=== PATIENT | female | born 1965 | race Caucasian/White ===

== ENCOUNTER 2017-04-24 09:46 | Emergency (ER) | payer BC ==
[~2017-04-24] VITALS: Ht 165.1 cm; Wt 76.2 kg
[~2017-04-24 09:46] MED LIST: CEFD300C3 PO; Lisinopril PO; MECL-106 PO; NAPR220T76 PO
--- OUTSIDE RECORDS SUMMARY | 2017-04-24 09:52 | XMS REPORT | Continuity of Care Document ---
Demographics Preferred Language Unknown Marital Status Unknown Yarsanism Affiliation Unknown Race Unknown Ethnic Group Unknown Author Author [facility] Address Unknown Phone Unavailable Allergies Active Description Code Type Severity Reaction Onset Reported/Identified Relationship to Patient Clinical Status Yes NKA NKA Mild N/A 05/07/2014 Yes No Known Drug Allergies [id number] Drug Allergy Unknown N/A 05/07/2014 Medications There is no data. Problems Date Dx Coded Attending Type Code Diagnosis Diagnosed By 05/06/2010 309.28 AD ADJ D/O W ANX DEP MOOD 05/09/2014 WILFREDO CLARKE, ROSE Eubanks Ot 346.20 05/09/2014 WILFREDO CLARKE, ROSE Eubanks Ot 786.9 05/09/2014 WILFREDO CLARKE, ROSE Eubanks Ot V04.81 Procedures There is no data. Results There is no data. Encounters ACCT No. Visit Date/Time Discharge Status Pt. Type Provider Facility Loc./Unit Complaint [id number] 05/06/2010 11:35:00 05/06/2010 23:59:59 CLS Outpatient [id number] 04/15/2012 20:24:27 RECURRING [id number] 05/07/2014 16:00:00 05/09/2014 16:53:00 DIS Inpatient WILFREDO CLARKE, ROSE Eubanks [address] [id number] 09/13/2012 15:52:00 09/27/2012 15:41:00 DIS Outpatient [id number] 08/30/2012 13:09:00 08/30/2012 23:59:59 CLS Outpatient [id number] 07/31/2012 14:09:00 07/31/2012 23:59:59 CLS Outpatient [id number] 07/31/2012 09:05:00 07/31/2012 23:59:59 CLS Outpatient
[2017-04-24] MEDS ORDERED: TETANUS,DIPTH,PERTUSS P/F (BOOSTRIX) 0.5 ML VIAL IM ONE (10:15)
--- NOTE | 2017-04-24 10:40 | ED Upper Extremity ---
General Chief Complaint: Laceration Stated Complaint: LEFT THUMB LACERATION ON GLASS Source: patient Exam Limitations: no limitations History of Present Illness Date Seen by Provider: Apr 24, 2017 Time Seen by Provider: 10:36 Initial Comments To ER with laceration to the dorsal aspect left thumb while washing a glass drinkwear. Tetanus not up-to-date. Onset: just prior to arrival Severity: moderate Pain/Injury Location: left thumb Allergies and Home Medications Allergies Coded Allergies: No Known Drug Allergies (Unverified , 05/07/14) Home Medications No Active Prescriptions or Reported Meds Constitutional: see HPI EENTM: see HPI Respiratory: no symptoms reported Cardiovascular: no symptoms reported Genitourinary: no symptoms reported Musculoskeletal: no symptoms reported Skin: no symptoms reported Psychiatric/Neurological: No Symptoms Reported Past Nxxphen-Uptbjz-Dmamrk Hx Patient Social History Alcohol Use: Denies Use Recreational Drug Use: No Smoking Status: Never a Smoker Recent Foreign Travel: No Contact w/Someone Who Travel: No Immunizations Up To Date Tetanus Booster (TDap): More than 5yrs Date of Pneumonia Vaccine: Feb 01, 2012 Surgeries History of Surgeries: No Respiratory History of Respiratory Disorde: No Cardiovascular History of Cardiac Disorders: Yes (NEW DIAGNOSES) Neurological History of Neurological Disord: Yes Reproductive System Hx Reproductive Disorders: No Sexually Transmitted Disease: No HIV/AIDS: No Female Reproductive Disorders: Denies Genitourinary Genitourinary Disorders: UTI-Chronic Gastrointestinal Gastrointestinal Disorders: Gastroesophageal Reflux Musculoskeletal History of Musculoskeletal Dis: Yes Musculoskeletal Disorders: Arthritis Endocrine History of Endocrine Disorders: No HEENT Loss of Vision: Denies Hearing Impairment: Denies Cancer History of Cancer: No Psychosocial History of Psychiatric Problem: Yes Integumentary History of Skin or Integumenta: Yes (GETS HIVES) Blood Transfusions History of Blood Disorders: No Adverse Reaction to a Blood Tr: No Family Medical History Family Medial History: Arthritis 19 MOTHER Asthma SON1 Cataracts 19 MOTHER Coronary thrombosis 19 FATHER Diabetes mellitus 19 FATHER 19 MOTHER Fibrocystic disease of breast GRANDMOTHER Hypercholesterolemia 19 FATHER 19 MOTHER G8 BROTHER G8 SISTER G8 SISTER Hypertension 19 FATHER Myocardial infarction 19 FATHER GRANDMOTHER Neoplasm GRANDMOTHER Thyroid disease G8 SISTER No Family History of: AIDS Abdominal aortic aneurysm Mellette's disease Alcoholism Alzheimer's disease Aphasia Cancer of mouth Cardiovascular disease Colon cancer Completed stroke Congenital disease Congenital heart disease Cystic fibrosis Deafness or hearing loss Dementia Drug abuse Dysphasia Gastroenteritis Glaucoma Headache disorder Infertility Kidney disease Not obtainable due to adoption Osteoporosis Parkinson's disease Prostate cancer Psychosocial problem Respiratory disorder Seizure disorder Severe allergy Tuberculosis Visual disorder Physical Exam Vital Signs Capillary Refill : General Appearance: WD/WN, no apparent distress HEENT: PERRL/EOMI, normal ENT inspection Neck: non-tender, full range of motion Respiratory: no respiratory distress, no accessory muscle use Gastrointestinal: normal bowel sounds, non tender, soft Shoulder: normal inspection, non-tender Elbow/Forearm: normal inspection, non-tender, Left Hand: Left, laceration (1.5 cm laceration over the IP joint dorsally left thumb this does not extend to the extensor tendons only to the subcutaneous tissues. She is able to flex and extend the thumb fully) Neurologic/Psychiatric: alert, normal mood/affect, oriented x 3 Skin: normal color, warm/dry Laceration Repair : Wound Location: Upper Extremities Wound Length (cm): 1.5 Wound's Depth, Shape: sub Q Wound Explored: clean Irrigated w/ Saline (ccs): 250 Anesthesia: 1% Lidocaine Volume Anesthetic (ccs): 2 Suture: Ethlion Suture Size: 4-0 Number of Sutures: 6 Layer Closure?: 1 Number Deep Layer Sutures: 0 Progress Area anesthetized with 2 mL of 1% lidocaine without epinephrine. Wound then scrubbed with chlorhexidine/saline solution then irrigated with plain saline. Closed with 6 simple interrupted sutures size 4-0 Ethilon Departure Impression Impression: Primary Impression: Thumb laceration Disposition: 01 HOME, SELF-CARE Condition: Improved Departure-Patient Inst. Decision time for Depature: 10:39 Referrals: ROSE VILLALOBOS MD (PCP) Primary Care Physician Patient Instructions: Laceration Repair With Stitches (DC) Add. Discharge Instructions: 1. You may remove this bulky dressing tomorrow. Do not soak this hand in water such as a dish sink or hot tub or bathtub until the stitches have been removed. However, starting tomorrow you may allow this to get wet in the shower allowing water to run over it. Remove this dressing tomorrow and replace it with a simple Band-Aid. Wear the thumb splint to keep from bending her thumb for the next 5 days. Return to the emergency room in 7-10 days at your convenience to have the stitches removed. All discharge instructions reviewed with patient and/ or family. Voiced understanding. Scripts No Active Prescriptions or Reported Meds GERDA WILDE APRN Apr 24, 2017 10:40
[2017-04-24 10:55] VITALS: BP 167/99
== END 2017-04-24 10:53 | disposition home or self-care (01) ==
LOC: EDUNIT# 09:46 → ER 09:48
DX: S61.012A Laceration without foreign body of left thumb without damage to nail, initial encounter (principal); K21.9 Gastro-esophageal reflux disease without esophagitis; Z23 Encounter for immunization; Z86.79 Personal history of other diseases of the circulatory system; Z82.49 Family history of ischemic heart disease and other diseases of the circulatory system; W18.02XA Striking against glass with subsequent fall, initial encounter
CPT/HCPCS: 12011; 90471; 90715

== ENCOUNTER 2017-05-07 09:16 | Emergency (ER) | payer BC ==
[~2017-05-07] VITALS: Ht 162.6 cm; Wt 68.0 kg
[2017-05-07 09:36] VITALS: BP 146/94
== END 2017-05-07 09:31 | disposition home or self-care (01) ==
LOC: EDUNIT# 09:16 → ER 09:17
DX: S61.012D Laceration without foreign body of left thumb without damage to nail, subsequent encounter (principal); X58.XXXD Exposure to other specified factors, subsequent encounter

== ENCOUNTER → 2017-05-28 | Outpatient (CLI) | payer BC ==
--- NOTE | 2017-05-28 16:03 | Diagnostic Imaging Report ---
INDICATION: Nausea. Dizziness. Blurred vision x1 month. TECHNIQUE: Routine non contrast-enhanced axial images were obtained from the skull base to the vertex. COMPARISON: 05/07/2014. FINDINGS: The ventricles and cortical sulci are normal in size and contour. There is no midline shift or mass-effect. No acute intra-axial hemorrhage is seen. There are no abnormal areas of increased or decreased density to suggest acute hemorrhage or edema. No extra-axial masses or collections are present. The bony calvarium is intact. The visualized paranasal sinuses are unremarkable. The mastoid air cells are clear. IMPRESSION: 1. No acute intracranial abnormality. No CT evidence of mass, acute infarct or intracranial hemorrhage. Dictated by: Dictated on workstation # [id number]
== END ==
LOC: RAD 15:28
PROVIDERS: ATTEND Family Medicine
DX: H53.8 Other visual disturbances (principal); R51 Headache; R11.0 Nausea; R42 Dizziness and giddiness
CPT/HCPCS: 70450

== ENCOUNTER → 2021-01-07 | Outpatient (CLI) | payer SELFPAY ==
[~2021-01-07] MED LIST changes: +CATHETER FLUSH 10 ML SYR IV PRN; +HOLD METFORMIN - RECEIVED CONTRAST 20 ML VIAL IV SCH; +IOHEXOL 350 MG/ML 100 ML (OMNIPAQUE 350) VIAL IV ONE; +NS 100 ML (IVPB) BAG IV ONE
--- NOTE | 2021-01-07 14:52 | Diagnostic Imaging Report ---
PROCEDURE: CT angiography of the chest with contrast. TECHNIQUE: Multiple contiguous axial images were obtained through the chest after uneventful bolus administration of intravenous contrast. 3D reconstructed CTA MIP acquisitions were also performed. Auto Exposure Controls were utilized during the CT exam to meet ALARA standards for radiation dose reduction. DATE: January 07, 2021. COMPARISON: Chest radiograph May 07, 20192014. INDICATION: 55-year-old female, elevated d-dimer. Shortness of breath on exertion. FINDINGS: There is no identified pulmonary nodule or lung mass. There is no focal airspace consolidation. There is no pneumothorax. There is no pleural effusion. The central airways are patent. There is no identified pulmonary embolus. The heart is not enlarged. There is no pericardial effusion. There is no identified mediastinal, hilar, or axillary lymph node meeting CT size criteria for adenopathy. There is note of 2 left-sided renal arteries. There is no identified acute bony abnormality. There are degenerative changes of the lower cervical spine. IMPRESSION: CT CHEST. 1. No identified pulmonary embolus or other acute cardiopulmonary abnormality. Dictated by: Dictated on workstation # [id number]
== END ==
LOC: RAD 13:45
PROVIDERS: ATTEND Pediatrics
DX: R79.89 Other specified abnormal findings of blood chemistry (principal); R06.09 Other forms of dyspnea
CPT/HCPCS: 71275

== ENCOUNTER → 2021-12-20 | Outpatient (CLI) | payer BC, OTHER ==
[~2021-12-20] MED LIST changes: -CATHETER FLUSH 10 ML SYR IV PRN; -HOLD METFORMIN - RECEIVED CONTRAST 20 ML VIAL IV SCH; -IOHEXOL 350 MG/ML 100 ML (OMNIPAQUE 350) VIAL IV ONE; -NS 100 ML (IVPB) BAG IV ONE
== END ==
LOC: CARD 13:00
PROVIDERS: ATTEND Internal Medicine Cardiovascular Disease
DX: R06.09 Other forms of dyspnea (principal); R00.2 Palpitations
CPT/HCPCS: 93225; 93226; 93306

== ENCOUNTER → 2021-12-30 | Outpatient (CLI) | payer BC, OTHER ==
[~2021-12-30] VITALS: Ht 165 cm; Wt 84.0 kg
[~2021-12-30] MED LIST changes: +CATHETER FLUSH 10 ML SYR IVP PRN; +REGADENOSON 0.4 MG/5 ML SYR (LEXISCAN) IV ONE
[2021-12-30 08:58] VITALS: BP 151/94
--- NOTE | 2021-12-30 12:30 | STRESS TEST ---
DATE OF SERVICE: 12/30/2021 RESTING AND POST REGADENOSON TECHNETIUM-99M TETROFOSMIN SPECT CT IMAGING ORDERING PHYSICIAN: Dr. Hicks. CLINICAL DIAGNOSIS: Shortness of breath. Baseline images were carried out after injection of 10.69 mCi of technetium-99m Tetrofosmin. This was followed by 0.4 mg regadenoson and 30.6 mCi of technetium-99m Tetrofosmin for stress imaging. The electrocardiogram showed sinus rhythm at baseline. A ventricular couplet was seen during the study. No ventricular or supraventricular tachycardia was seen. The patient noted headache and shortness of breath and nausea following regadenoson infusion, which resolved in a few minutes. Review of images at rest and following stress does not indicate any significant perfusion defects consistent with myocardial ischemia or infarction. Gated images show normal global left ventricular systolic function with normal regional wall motion. Left ventricular ejection fraction is calculated to be 65%. CONCLUSIONS: 1. No evidence of any significant myocardial ischemia or infarction study. 2. Normal regional wall motion. 3. Normal global left ventricular systolic function with a calculated ejection fraction of 65%. Job ID: [id number] DocumentID: [id number] Dictated Date: 12/30/2021 12:07:04 Patient Support Specialist Date: 12/30/2021 12:29:15 Dictated By: MARTINA HIKCS MD, MA, FACP, FACC, MTDD
== END ==
LOC: CARD 08:00
PROVIDERS: ATTEND Internal Medicine Cardiovascular Disease
DX: R06.09 Other forms of dyspnea (principal); R00.2 Palpitations; R06.02 Shortness of breath
CPT/HCPCS: 78452; 93017; A9502

== ENCOUNTER 2022-05-15 15:55 | Outpatient (CLI) | payer BC ==
[~2022-05-15 15:55] MED LIST changes: -CATHETER FLUSH 10 ML SYR IVP PRN; -REGADENOSON 0.4 MG/5 ML SYR (LEXISCAN) IV ONE
== END 2022-05-15 16:25 ==
LOC: SLEEP 15:55
PROVIDERS: ATTEND Otolaryngology Otolaryngology/Facial Plastic Surgery
DX: G47.33 Obstructive sleep apnea (adult) (pediatric) (principal); G47.36 Sleep related hypoventilation in conditions classified elsewhere; R06.83 Snoring
CPT/HCPCS: G0399

== ENCOUNTER 2022-08-15 10:00 | Day surgery (SDC) | payer BC ==
[~2022-08-15] VITALS: Ht 165.1 cm; Wt 67.5 kg
[2022-08-15] VITALS (8 sets, daily range): BP systolic 103–127; BP diastolic 65–80
[2022-08-15 08:15] LABS: HEMATOCRIT 36 % (35-52); HEMOGLOBIN 11.9 g/dL (11.5-16.0); MEAN CORPUSCULAR HEMOGLOBIN 30 pg (25-34); MEAN CORPUSCULAR HGB CONC 33 g/dL (32-36); MEAN CORPUSCULAR VOLUME 91 fL (80-99); MEAN PLATELET VOLUME 8.8 fL (9.0-12.2); PLATELET COUNT 356 10^3/uL (130-400); WHITE BLOOD COUNT 5.9 10^3/uL (4.3-11.0)
[2022-08-15 08:25] LABS: PROTHROMBIN TIME PATIENT 13.3 SEC (12.2-14.7)
[2022-08-15 08:36] LABS: ALBUMIN 4.5 GM/DL (3.2-4.5); BILIRUBIN,TOTAL 0.6 MG/DL (0.1-1.0); CALCIUM 10.3 MG/DL (8.5-10.1); CREATININE SERUM 0.93 MG/DL (0.60-1.30); POTASSIUM 3.7 MMOL/L (3.6-5.0)
[~2022-08-15 10:00] MED LIST changes: +ACET325T38 PO; +ALPR0.254 PO; +ASPI-1238 PO; +ATOR80TA76 PO; +FENO135C4 PO; +HEParin (CATH LAB) 2,000 ML IV ONE; +HEParin 1000 UNIT/ML (10ML VIAL) FOR BOLUS ONE; +LIDOCAINE 1% INJ 20 ML VIAL ONE; +MAGN400T39 PO; +METF-479 PO; +MIDAZOLAM 5 MG/5 ML (VERSED) VIAL ONE; +MTP25TSR PO; +NITRO DRIP 25000 MCG/D5W 250 ML IV ONE; +NS IV 1000 ML 1,000 ML IV SCH; +NS IV 1000 ML 1,000 ML ONE; +TIRZ5PEN SQ; +VERAPAMIL 5 MG/2 ML (CALAN) VIAL IV ONE; +fentaNYL INJ 100 MCG/2 ML AMP ONE
[2022-08-15] MEDS ORDERED: diphenhydrAMINE 50 MG/ML INJ (BENADRYL) ONE (10:15)
--- NOTE | 2022-08-15 10:45 | Cardiac Procedure Note-CS/ASA ---
Pre-Procedure Note Pre-Op Procedure Note Date of Available H&P: August 19, 2022 Date H&P Reviewed: August 15, 2022 Time H&P Reviewed: 09:45 History & Physical: H&P Reviewed, No changes noted Moderate Sedation PreProcedure ASA Score 3 Airway Lungs Heart ASA score ASA 1: a normal healthy patient ASA 2: a patient with a mild systemic disease (mid diabetes, controlled hypertension, obesity ASA 3: a patient with a severe systemic disease that limits activity (angina, COPD, prior Myocardial infarction) ASA 4: a patient with an incapacitating disease that is a constant threat to life (CHF, renal failure) ASA 5: a moribund patient not expected to survive 24 hrs. (ruptured aneurysm) ASA 6: a declared brain- patient whose organs are being harvested. For emergent operations, add the letter E after the classification Mallampati Classification Grade 1 Sedation Plan Analgesia, Amnesia, Plan communicated to team members The patient is an appropriate candidate to undergo the planned procedure, sedation, and anesthesia. The patient immediately re-assessed prior to indication. MARTINA TARIQ MD FACP FAC CCDS August 15, 2022 10:45
--- NOTE | 2022-08-15 10:53 | Cardiac Cath Report ---
CARDIAC CATHETERIZATION DATE OF PROCEDURE: [ ] INDICATION: On episode of non-sustained wide-complex tachycardia seen on ambulatory cardiac monitoring (07-20-22 to 08-03-22) HISTORY: The patient is a 57 year old female with palpitations, chest discomfort, and shortness of breath who exhibited one episode of WCT on Zio monitoring or 07-20-22 to 08-03-22 PROCEDURES PERFORMED: 1. Cor angio; 2. LHC and LV angio; 3. Aortic root angio PROCEDURE DESCRIPTION: After informed consent and in the fasting state, left heart catheterization was performed through the R radial artery utilizing 6F TIG for L cors, pigtail for LHC and LV angio, pigtail for aortic root angio (to locate RCA) and 5F Mendez's Right for RCA HEMODYNAMICS: LVEDP 13 mmHg, no significant pressure gradient on pull back across the aortic valve CORONARY ANGIOGRAPHY: Left main coronary artery: Ok Left anterior descending coronary artery: Ok Left circumflex coronary artery: Dominant, Ok Right coronary artery: Non-dominant, anterior, Ok LV ANGIO: Normal LV function, LVEF approx 60% AORTIC ROOT ANGIO: No aortic root dilatation, good excursion of aortic valve l eaflets, no aortic regurgitation, origin of non-dominant RCA identified IMPRESSION: 1. No significant CAD 2. Normal LV function with LVEF 60% 3. LVEDP 13 mmHg MARTINA TARIQ MD FACP [facility] August 15, 2022 10:53
--- NOTE | 2022-08-15 10:56 | Discharge Inst-Cardiology ---
Discharge Inst-Cardiac Discharge Medications Continued Medications: Acetaminophen (Tylenol) 325 Mg Tablet 650 MG PO Q6H PRN for PAIN-MILD (1-4), TAB ALPRAZolam (ALPRAZolam) 0.25 Mg Tablet 0.125 MG PO BID PRN for ANXIETY, TAB TAKES OF A (0.25MG) TABLET Atorvastatin Calcium (Atorvastatin Calcium) 80 Mg Tablet 40 MG PO HS, TAB TAKES OF A (80MG) TABLET Fenofibric Acid (Choline) (Fenofibric Acid) 135 Mg Capsule.dr 135 MG PO DAILY, CAP Magnesium Oxide (Magnesium) 400 Mg Magnesium Tablet 400 MG PO HS, TAB Metoprolol Succinate (Metoprolol Succinate) 25 Mg Tab.er.24h 25 MG PO HS, TAB Tirzepatide (Mounjaro) 5 Mg/0.5 Ml Pen.injctr 5 MG SQ SUNDAY, VIAL Discontinued Medications: Aspirin (Aspirin EC) 81 Mg Tablet.dr 81 MG PO DAILY, TAB Metformin HCl (Metformin HCl ER) 1,000 Mg Tab.er.24 1000 MG PO W/ LUNCH, TAB Patient Instructions Patient Instructions: Hold METFORMIN until the morning of 08-18-22; then resume previous home dose MARTINA TARIQ MD FACP FACC CCDS August 15, 2022 10:56
--- NOTE | 2022-08-15 10:56 | Discharge Inst-Post CATH ---
Discharge Inst-CATH/EP Post Cardiac Cath/EP D/C Inst Follow Up/Plan F/u with Dr Hicks in 2 weeks ACTIVITY * Go Home directly and rest. * Limit activity of the leg (or wrist if it was used) for 7 days including aerobics, swimming, jogging, bicycling, etc. * Restrict stair-climbing for 7 days if possible, if not, climb up with your no n-cath leg, then bring together on the same step. * Avoid lifting, pushing, pulling or excessive movement of the affected ext remity for 7 days. * Customary sexual activity may be resumed after 2 days-use caution not to use a position that strains or causes pain to the affected extremity. * No driving for 24 hours. * NO SMOKING. * Avoid straining for bowel movements for 7 days. * Gentle walking on level ground is allowed. * Returning to work will depend on the type of procedure and the results. Your doctor will discuss this with you. CALL YOUR DOCTOR FOR ANY OF THE FOLLOWING: *If bleeding from the puncture site occurs- Apply gentle pressure to site with clean cloth and call your doctor or EMS. * If a knot or lump forms under the skin, increases in size, or causes pain. * If bruising appears to be worsening or moving further down your leg instead of disappearing. * Temperature above 101 F. CARE OF YOUR GROIN INCISION; * Bruising or purple discoloration of the skin near the puncture site is common. * You may shower only, no bathtub bathing for 5 days. Be careful to avoid slipping as your leg may feel stiff. * If a closure device was used on your femoral artery, please see the attached guide regarding care of the device and your leg. * Leave dressing on FOR 24 hours. CARE OF YOUR WRIST INCISION; * Bruising or purple discoloration of the skin near the puncture site is common. * You may shower. * DO NOT submerge wrist. * Leave dressing on FOR 24 hours. MARTINA HICKS MD FACP FAC CCDS August 15, 2022 10:56
[2022-08-15] MEDS ORDERED: PATIENT MAY USE OWN MEDS, ALL PO SCH (11:00)
[2022-08-15] MEDS ORDERED: NS IV 1000 ML 1,000 ML IV SCH (11:00)
== END 2022-08-15 13:05 | disposition home or self-care (01) ==
LOC: CATH 10:00 → SDC 11:11 → CATH 13:05
PROVIDERS: ATTEND Internal Medicine Cardiovascular Disease
DX: I49.5 Sick sinus syndrome (principal); R07.89 Other chest pain; R00.2 Palpitations; R06.02 Shortness of breath; I10 Essential (primary) hypertension; E11.9 Type 2 diabetes mellitus without complications; K21.9 Gastro-esophageal reflux disease without esophagitis; G47.33 Obstructive sleep apnea (adult) (pediatric); E83.42 Hypomagnesemia
CPT/HCPCS: 80053; 80061; 85027; 85610; 85730; 87081; 93005; 93458; 93567; C1769; C1894; 36415

== ENCOUNTER 2022-08-29 11:27 | Outpatient (RCR) | payer BC ==
[~2022-08-29 11:27] MED LIST changes: -HEParin (CATH LAB) 2,000 ML IV ONE; -HEParin 1000 UNIT/ML (10ML VIAL) FOR BOLUS ONE; -LIDOCAINE 1% INJ 20 ML VIAL ONE; -MIDAZOLAM 5 MG/5 ML (VERSED) VIAL ONE; -NITRO DRIP 25000 MCG/D5W 250 ML IV ONE; -NS IV 1000 ML 1,000 ML IV SCH; -NS IV 1000 ML 1,000 ML ONE; -VERAPAMIL 5 MG/2 ML (CALAN) VIAL IV ONE; -fentaNYL INJ 100 MCG/2 ML AMP ONE
== END 2022-08-30 | disposition home or self-care (01) ==
PROVIDERS: ATTEND Family Medicine Sports Medicine
DX: M75.51 Bursitis of right shoulder (principal); E11.9 Type 2 diabetes mellitus without complications

== ENCOUNTER 2022-09-18 09:55 | Outpatient (RCR) | payer BC | END 2022-09-29 12:15 | disposition home or self-care (01) | PROVIDERS: ATTEND Family Medicine Sports Medicine | DX: M75.51 Bursitis of right shoulder (principal); E11.9 Type 2 diabetes mellitus without complications ==